=== PATIENT | male | born 1945 | race Caucasian/White ===

== ENCOUNTER → 2018-10-25 | Outpatient (CLI) | payer OTHER ==
[~2018-10-25] MED LIST: BUPIVACAINE 0.25% INJ 50ML VIAL ONE; IOHEXOL 300 MG/ML 100ML BOTTLE IJ ONE; LIDOCAINE 2% (LOCAL ANESTH.) PF 5ml SDV ONE; methylPREDNISolone ACETATE 80 MG/ML VL ONE
== END | disposition home or self-care (01) ==
LOC: XYW 10:21
PROVIDERS: ATTEND Orthopaedic Surgery Adult Reconstructive Orthopaedic Surgery
DX: M25.512 Pain in left shoulder (principal)
CPT/HCPCS: 20610; 73020; 76000; J1040; J2001; J3490; Q9967

== ENCOUNTER 2024-05-04 12:22 | Inpatient (IN) | payer OTHER, MEDICAID ==
[~2024-05-04] VITALS: Ht 172.7 cm; Wt 109.3 kg
[2024-05-04 14:07] LABS: Basophils # (auto) 0.1 10 ^3/uL (0-0.2); Basophils % (auto) 0.8 % (0.0-2.0); Eosinophils # (auto) 0 10 ^3/uL (0-0.8); Eosinophils % (auto) 0.1 % (0.0-7.0); Hematocrit 44.2 % (41.0-53.0); Hemoglobin 14.9 g/dL (13.5-17.5); Lymphocytes # (auto) 0.8 10 ^3/uL (0.4-5.4); Mean Corpuscular Hemoglobin 33.7 pg (28.0-32.0); Mean Corpuscular Hgb Conc. 33.8 g/dL (32.0-36.0); Mean Corpuscular Volume 99.7 fL (80.0-100.0); Monocytes # (auto) 0.5 10 ^3/uL (0-1.3); Monocytes % (auto) 5.9 % (0.0-12.0); Neutrophils # (auto) 6.3 10 ^3/uL (1.6-8.6); Neutrophils % (auto) 82.2 % (37.0-80.0); Red Blood Cells 4.43 10^6/uL (4.5-5.90); Red Cell Distribution Width 13.8 % (11.8-14.3); White Blood Cell 7.7 10^3/uL (4.4-10.8)
[2024-05-04 14:26] LABS: Alanine Aminotransferase 23 U/L (7-40); Albumin 3.7 g/dL (3.2-4.8); Alkaline Phosphatase 53 U/L (46-116); Anion Gap 2 (5-15); BUN/Creatinine Ratio 22.1 (10.0-20.0); Blood Urea Nitrogen 17 mg/dL (9-23); Calcium 8.7 mg/dL (8.5-10.1); Carbon Dioxide 32 mmol/L (20-30); Chloride 106 mmol/L (98-107); Glucose 109 mg/dL (74-106); Sodium 140 mmol/L (136-145)
[2024-05-04 14:27] LABS: Total Protein 6.2 g/dL (5.7-8.2)
[2024-05-04 15:00] VITALS: PULSE 75; RESP 17; O2SAT 94
[2024-05-04] MEDS: SODIUM CHLORIDE 0.9% 1,000 ML IV ONE (15:38)
[2024-05-04] MEDS: ENOXAPARIN SOD 150 MG/1 ML SYRINGE SC ONE (15:41)
[2024-05-04 15:54] LABS: Aspartate Aminotransferase 24 U/L (13-40)
[2024-05-04 16:59] LABS: Magnesium 1.4 mg/dL (1.6-2.6)
[2024-05-04 17:46] LABS: Urine Bacteria None Seen /hpf (None Seen)
[2024-05-04 17:47] LABS: Lipase 18 U/L (12-53)
[2024-05-04 17:49] LABS: Amylase 21 U/L (30-118)
[2024-05-04 17:55] LABS: Urine Blood Negative /uL (Negative); Urine Clarity Clear (Clear); Urine Color Yellow (Yellow); Urine Protein, UAD TRACE (Negative); Urine Specific Gravity 1.024 (1.001-1.035); Urine Urobilinogen 2 mg/dL (Negative); Urine WBC 1 /hpf (0 - 3); Urine pH 7.5 (5.0-9.0)
[2024-05-04 19:30] VITALS: PULSE 67; RESP 16; O2SAT 91
[2024-05-04] MEDS ORDERED: ACETAMINOPHEN 325 MG TAB PO PRN (21:30)
[2024-05-04] MEDS ORDERED: ALBUTEROL SULF 2.5 MG/0.5ML(0.5%) NEB SOLN NEB PRN (21:30)
[2024-05-04] MEDS ORDERED: ONDANSETRON HCL 4 MG/2 ML VIAL IV PRN (21:30)
[2024-05-04] MEDS ORDERED: DOCUSATE SOD 100 MG CAP PO PRN (21:30)
[2024-05-04] MEDS: MAGNESIUM SULFATE 1GM/100ML 100 ML IV ONE (21:55)
[2024-05-04] MEDS: ATORVASTATIN 20 MG TAB PO SCH (21:57)
[2024-05-04] MEDS: FAMOTIDINE (10MG/ML) 2ML VL IV SCH (21:57)
[2024-05-04 22:07] VITALS: BP 130/67; PULSE 67; RESP 16; O2SAT 94
[2024-05-04] MEDS: SODIUM CHLOR 0.9% PF (SALINE LOCK) 10ML VIAL/SYR IV SCH (22:11)
[2024-05-04] MEDS ORDERED: NITROGLYCERIN 0.4 MG SL TAB SL PRN (23:45)
[2024-05-04] MEDS ORDERED: MORPHINE SULFATE INJ 2 MG/ml SYRG IV PRN (23:45)
[2024-05-05] MEDS: ENOXAPARIN SOD 150 MG/1 ML SYRINGE SC SCH (04:11)
[2024-05-05 06:32] LABS: Eosinophils # (auto) 0.1 10 ^3/uL (0-0.8); Lymphocytes # (auto) 1.3 10 ^3/uL (0.4-5.4)
[2024-05-05 06:34] LABS: Basophils # (auto) 0.1 10 ^3/uL (0-0.2); Basophils % (auto) 0.8 % (0.0-2.0); Eosinophils % (auto) 1.5 % (0.0-7.0); Hematocrit 44.6 % (41.0-53.0); Lymphocytes % (auto) 20.2 % (10.0-50.0); Mean Corpuscular Hemoglobin 33.7 pg (28.0-32.0); Mean Corpuscular Hgb Conc. 33.5 g/dL (32.0-36.0); Mean Corpuscular Volume 100.6 fL (80.0-100.0); Monocytes # (auto) 0.7 10 ^3/uL (0-1.3); Monocytes % (auto) 10.4 % (0.0-12.0); Neutrophils # (auto) 4.4 10 ^3/uL (1.6-8.6); Neutrophils % (auto) 67.1 % (37.0-80.0); Nucleated Red Blood Cells % 0.1 %; Red Blood Cells 4.44 10^6/uL (4.5-5.90); Red Cell Distribution Width 13.9 % (11.8-14.3); White Blood Cell 6.5 10^3/uL (4.4-10.8)
[2024-05-05 06:46] LABS: Albumin 3.6 g/dL (3.2-4.8); Alkaline Phosphatase 51 U/L (46-116); Anion Gap 9 (5-15); Aspartate Aminotransferase 23 U/L (13-40); BUN/Creatinine Ratio 19.5 (10.0-20.0); Blood Urea Nitrogen 16 mg/dL (9-23); Calcium 8.9 mg/dL (8.7-10.4); Carbon Dioxide 29 mmol/L (20-30); Chloride 105 mmol/L (98-107); Glucose 88 mg/dL (74-106); Potassium 3.9 mmol/L (3.5-5.1); Sodium 143 mmol/L (136-145)
[2024-05-05 06:47] LABS: Bilirubin, Total 1.3 mg/dL (0.2-1.0); Total Protein 6.3 g/dL (5.7-8.2)
[2024-05-05 07:09] LABS: Alanine Aminotransferase 20 U/L (7-40)
[2024-05-05 07:45] VITALS: PULSE 76; RESP 15; O2SAT 92
[2024-05-05 07:52] VITALS: O2SAT 96
[2024-05-05] MEDS: HYDROcodone-ACET 5/325MG TAB PO PRN (11:45)
[2024-05-05 19:30] VITALS: PULSE 76; RESP 15; O2SAT 91
[2024-05-06] VITALS (11 sets, daily range): BP systolic 149–160; BP diastolic 65–85; PULSE 69–84; RESP 18–20; TEMP 97.8–98.4; O2SAT 94–98
[2024-05-06] MEDS: LISINOPRIL 5 MG TAB PO SCH (09:39)
[2024-05-06] MEDS ORDERED: PROP1TAB59 PO (15:48)
[2024-05-06] MEDS ORDERED: ATOR-47 PO (15:48)
[2024-05-06] MEDS ORDERED: FURO40TA4 PO (15:48)
[2024-05-06] MEDS ORDERED: HYDR25TA4 PO (15:48)
[2024-05-06] MEDS ORDERED: FLUT1AER17 IN (15:48)
[2024-05-06] MEDS ORDERED: TRAM-626 PO (15:48)
[2024-05-06] MEDS ORDERED: BENA40TA71 PO (15:48)
[2024-05-06] MEDS ORDERED: SPIR25TA8 PO (15:48)
[2024-05-06] MEDS ORDERED: DULO1CAP5 PO (15:48)
[2024-05-06] MEDS ORDERED: PRIM50TA5 PO (15:48)
[2024-05-06] MEDS ORDERED: PREG25CA28 PO (15:48)
[2024-05-06] MEDS ORDERED: CHOL20007 PO (15:48)
[2024-05-06] MEDS ORDERED: OMEP-448 PO (15:48)
[2024-05-06] MEDS ORDERED: POTA-36 PO (15:48)
[2024-05-07] VITALS (7 sets, daily range): BP systolic 129–163; BP diastolic 54–86; PULSE 69–80; RESP 18–22; TEMP 98.1–98.3; O2SAT 94–100
[2024-05-07] MEDS: hydrALAZINE HCL 20 MG/ML VL IV PRN (01:06)
== END 2024-05-07 17:30 | disposition hospice, home (50) | DRG 391 ==
LOC: ER 12:22 → EDBD 12:22 → TELE 23:38 → TELE-WESTW 05-06 01:05
PROVIDERS: ADMIT Nurse Practitioner Family; ATTEND Internal Medicine
DX: A08.4 Viral intestinal infection, unspecified (principal); I21.A1 Myocardial infarction type 2; E66.01 Morbid (severe) obesity due to excess calories; E78.5 Hyperlipidemia, unspecified; I10 Essential (primary) hypertension; J44.9 Chronic obstructive pulmonary disease, unspecified; I45.10 Unspecified right bundle-branch block; Z87.891 Personal history of nicotine dependence; Z68.36 Body mass index [BMI] 36.0-36.9, adult
CPT/HCPCS: 36415; 74176; 80053; 80061; 81001; 82150; 83036; 83690; 83735; 84443; 84484; 85025; 93005; 93306; 97163; 99291; G0378; J3490